=== PATIENT | male | born 1960 | race Caucasian/White ===

== ENCOUNTER → 2023-04-05 10:56 | Outpatient (BNVA) | payer MEDICARE, SELFPAY | PROVIDERS: Family Provider Emergency Medicine; PCP Emergency Medicine; Referring Provider Family Medicine; Visit Provider Nurse Practitioner Family | DX: S49.92XA Unspecified injury of left shoulder and upper arm, initial encounter (principal); W19.XXXA Unspecified fall, initial encounter; M67.912 Unspecified disorder of synovium and tendon, left shoulder | CPT/HCPCS: 73030; 99203 ==

== ENCOUNTER 2023-05-17 07:48 | Emergency (ER) | payer MEDICARE, MEDICAID, SELFPAY ==
[2023-05-17] VITALS (48 sets, daily range): BP systolic 130–153; BP diastolic 77–92; PULSE 64–98; RESP 7–33; TEMP 36.5; O2SAT 89–100; BMI 22.1
--- NOTE | 2023-05-17 08:02 | XRR_ITS ---
PROCEDURE INFORMATION: Exam: XR Left Elbow Exam date and time: 05/17/2023 8:23 AM Age: 63 years old Clinical indication: Pain; Elbow; Left TECHNIQUE: Imaging protocol: Radiologic exam of the left elbow. Views: 3 or more views. COMPARISON: CR XR shoulder LT min 2V* [id number] 05/17/2023 8:20 AM FINDINGS: Bones/joints: Alignment is normal. Joint spaces are preserved. No joint effusion. There is a subtle lucent cleft visible in the posterosuperior margin of the olecranon on the lateral radiograph. Soft tissues: There is thickening of the soft tissues posterior to the olecranon. XR/XR elbow LT min 3V* [id number] IMPRESSION: 1. Subtle lucent cleft at the posterosuperior margin of the olecranon visible on the lateral view. There is adjacent soft tissue swelling. Possible acute fracture and/or olecranon bursitis. 2. No joint effusion.
--- NOTE | 2023-05-17 08:02 | XRR_ITS ---
PROCEDURE INFORMATION: Exam: XR Left Shoulder Exam date and time: 05/17/2023 8:20 AM Age: 63 years old Clinical indication: Pain; Shoulder; Left TECHNIQUE: Imaging protocol: Radiologic exam of the left shoulder. Views: 2 or more views. COMPARISON: CR XR shoulder LT min 2V* [id number] 04/05/2023 10:59 AM FINDINGS: Bones/joints: Alignment is normal. No acute fracture. Soft tissues: Visible soft tissues are unremarkable. XR/XR shoulder LT min 2V* [id number] IMPRESSION: No acute findings.
--- NOTE | 2023-05-17 08:06 | ECG_ITS ---
[facility] Test Date: 2023-05-17 Pat Name: Dov Bartholomew Department: Room: Gender: Male Proofer Prepress: : 1960 Requested By: Shakeel Meeks Order Number: [id number] Ellie MD: Toni Benjamin M.D. Measurements Intervals [place] Rate: 78 P: 75 DC: 148 QRS: 59 QRSD: 88 T: 77 QT: 386 QTc: 442 Interpretive Statements SINUS RHYTHM No previous ECG available for comparison Electronically Signed On 05-17-2023 13:50:47 CDT by Toni Benjamin M.D. [email or web address]
--- NOTE | 2023-05-17 08:06 | XRR_ITS ---
PROCEDURE INFORMATION: Exam: XR Chest Exam date and time: 05/17/2023 8:18 AM Age: 63 years old Clinical indication: Cough and dyspnea; Additional info: Dyspnea/cough TECHNIQUE: Imaging protocol: Radiologic exam of the chest. Views: 1 view. COMPARISON: CR XR shoulder LT min 2V* [id number] 04/05/2023 10:59 AM FINDINGS: Lungs: There is no consolidation. Pleural spaces: There is no pleural effusion or pneumothorax. Heart/Mediastinum: Cardiomediastinal contours are unremarkable. There are calcified bilateral hilar and upper mediastinal lymph nodes. Bones/joints: Bones are unremarkable. XR/XR chest 1V portable [id number] IMPRESSION: No acute findings.
--- NOTE | 2023-05-17 08:12 | W.ED.AMS ---
HPI - Altered Mental Status General: Chief Complaint: Altered Mental Status Stated Complaint: hypotensive Time Seen by Provider: 05/17/23 07:50 Course Vital Signs: Vital signs: Vital Signs Temperature 97.7 F 05/17/23 07:55 Pulse Rate 73 05/17/23 07:55 Respiratory Rate 14 05/17/23 07:55 Blood Pressure 136/79 05/17/23 07:55 Pulse Oximetry 100 05/17/23 07:55 Oxygen Delivery Me thod Room Air 05/17/23 07:55 Discharge Plan Discharge Condition: Stable Prescriptions: No Action No Known Home Medications Referrals: Mars Alfred PA [Primary Care Provider] - Patient Instructions: Altered Mental Status (ED), Alcohol Intoxication (ED), Benzodiazepine Use Disorder (ED), Concussion (ED), Dementia (ED), Subarachnoid Hemorrhage (GEN), Hyponatremia (ED), Non-diabetic Hypoglycemia (ED), Hypoglycemia in a Person with Diabetes (ED) Coding Level of Care Code ED Certified Nursing Attendant for Quentin Rodriguez
--- NOTE | 2023-05-17 08:15 | W.ED.GENADLT ---
HPI - General Adult General: Chief complaint: Altered Mental Status Stated complaint: hypotensive Time Seen by Provider: 05/17/23 07:50 Source: patient Mode of arrival: ambulatory History of Present Illness: 63-year-old male brought in by EMS. The police had served a warrant for arrest and he began complaining of pain and gotten various complaints since he arrived here. Initially was hypotension and hypoglycemia but his blood pressure and his blood sugar were normal. He is complaining now of shoulder pain and arms being numb bilaterally he said a couple weeks ago he fell on his porch. There are notations from last month approximately 5 weeks ago when he was seen in the Ortho clinic for shoulder injury. That office note cited a fall he had a month prior in mid January. At that time they recommended conservative treatment with anti-inflammatories and therapy. X-rays were unremarkable at that time. Patient is otherwise difficult to get any history from pain repeatedly complains about various complaints from his neck to his shoulder to being numb throughout his entire body and then his arms. Associated symptoms: Deny chest pain, diaphoresis, dyspnea, nausea, rash or vomiting Review of Systems Const: Denies: fever(s), chills or diaphoresis Card: Denies: chest pain Resp: Denies: dyspnea GI: Denies: abdominal pain, nausea or vomiting : Denies: flank pain, dysuria, urinary frequency or urinary urgency Musc: Reports: joint pain (Left shoulder) Skin/Breast: Denies: rash or pruritus Physical Exam Const: GENERAL APPEARANCE: cooperative and comfortable HENMT: COMMON NORMALS: normocephalic, atraumatic and hearing grossly normal bilaterally HEAD & SCALP: normocephalic and atraumatic Resp: COMMON NORMALS: normal respiratory effort, No retractions, No use of accessory muscles and clear to auscultation bilaterally AUSCULTATION: clear to auscultation bilaterally Cardio: COMMON NORMALS: regular rate, regular rhythm and No murmurs present (Cardio) RATE: regular rate RHYTHM: regular rhythm GI: COMMON NORMALS: Soft to palpation and No hepatosplenomegaly present AUSCULTATION: Yes normoactive bowel sounds PALPATION: Yes Soft to palpation, No Tenderness to palpation present (GI), No Guarding due to palpation present (GI) and Yes No hepatosplenomegaly present Extremity: COMMON NORMALS: normal to inspection, capillary refill normal, no clubbing, cyanosis or edema, no calf tenderness and no pedal edema Skin: COMMON NORMALS: no rashes or lesions noted GENERAL SKIN EXAM: no rashes or lesions noted Course Vital Signs: Vital signs: Vital Signs Temperature 97.7 F 05/17/23 07:55 Pulse Rate 85 05/17/23 11:45 Respiratory Rate 18 05/17/23 11:45 Blood Pressure 132/77 05/17/23 11:45 Pulse Oximetry 98 05/17/23 11:45 Oxygen Delivery Me thod Room Air 05/17/23 11:30 MDM - General Adult Medical Decision Making Cardiac enzymes and EKG unremarkable x-rays left shoulder unremarkable he has previously been seen this been a pre-existing problem for a couple of months already him. All of his pain is with range of motion. Urine drug screen positive for amphetamines which I think is the cause of most of his symptoms at this point he does appear to be acutely under the influence. Discharge patient home with anti-inflammatories for shoulder and follow-up with his primary care and Ortho as needed Medical Records I reviewed the patient's medical records. Lab Data I reviewed the patient's lab results. 05/17/23 08:39 05/17/23 08:39 Radiology Impressions Elbow X-Ray 05/17/23 08:02 IMPRESSION: 1. Subtle lucent cleft at the posterosuperior margin of the olecranon visible on the lateral view. There is adjacent soft tissue swelling. Possible acute fracture and/or olecranon bursitis. 2. No joint effusion. Shoulder X-Ray 05/17/23 08:02 IMPRESSION: No acute findings. Chest X-Ray 05/17/23 08:06 IMPRESSION: No acute findings. Laboratory Results WBC 7.87 10^3/uL (3.29-11.43) 05/17/23 08:39 RBC 4.53 10^6/uL (3.85-5.65) 05/17/23 08:39 Hgb 13.30 g/dL (11.27-16.99) 05/17/23 08:39 Hct 41.0 % (37-53) 05/17/23 08:39 MCV 90.5 fl (82-101) 05/17/23 08:39 MCH 29.4 pg (27-33) 05/17/23 08:39 MCHC 32.4 g/dL (30-55) 05/17/23 08:39 RDW 12.1 % (12.1-15.1) 05/17/23 08:39 Plt Count 370 10^3/cmm (157-399) 05/17/23 08:39 MPV 8.6 fL (7.4-10.4) 05/17/23 08:39 Neut % (Auto) 67.1 % 05/17/23 08:39 Lymph % (Auto) 23.6 % 05/17/23 08:39 [place] % (Auto) 7.1 % 05/17/23 08:39 Eos % (Auto) 1.4 % 05/17/23 08:39 Baso % (Auto) 0.4 % 05/17/23 08:39 Neut # (Auto) 5.28 10^3/uL (1.8-7.7) 05/17/23 08:39 Lymph # (Auto) 1.9 10^3/uL (0.8-4.8) 05/17/23 08:39 [place] # (Auto) 0.6 10^3/uL (0.2-0.9) 05/17/23 08:39 Eos # (Auto) 0.1 10^3/uL (0.0-0.8) 05/17/23 08:39 Baso # (Auto) 0.0 10^3/uL (0.0-0.1) 05/17/23 08:39 Nucleated RBC % (auto) 0 % 05/17/23 08:39 Nucleated RBCs # 0.0 /100WBC 05/17/23 08:39 Specimen Type Arterial 05/17/23 09:00 Sample Site Radial, right 05/17/23 09:00 ABG pH 7.43 (7.35-7.45) 05/17/23 09:00 ABG pCO2 40.4 mmHg (35-45) 05/17/23 09:00 ABG pO2 87.6 mmHg (80.0-100.0) 05/17/23 09:00 ABG HCO3 26.6 mmol/L (22-26) H 05/17/23 09:00 ABG O2 Saturation 97.5 05/17/23 09:00 ABG Base Excess 2.0 mmol/L (-2.0-2.0) 05/17/23 09:00 Abe Test Pos 05/17/23 09:00 A-a O2 Gradient 1.6 mmHg (5-10) L 05/17/23 09:00 Hematocrit 41.2 % (42-52) L 05/17/23 09:00 Hgb O2 Saturation 95.7 % (95-100) 05/17/23 09:00 Carboxyhemoglobin 1.5 %THgb (0.4-20.1) 05/17/23 09:00 Methemoglobin 0.4 % (0.4-1.5) 05/17/23 09:00 Total Hemoglobin 13.5 g/dL (14-18) L 05/17/23 09:00 Sodium 138.0 mmol/L (131-143) 05/17/23 09:00 Potassium 3.7 mmol/L (3.5-5.0) 05/17/23 09:00 Glucose 104.0 mg/dL (70-115) 05/17/23 09:00 Ionized Calcium 1.2 mmol/L (1.1-1.4) 05/17/23 09:00 O2 Delivery Device Room air 05/17/23 09:00 FiO2 21.0 % 05/17/23 09:00 Sheriffs Detective ID glc 05/17/23 09:00 Sodium 141 mmol/L (136-145) 05/17/23 08:39 Potassium 4.0 mmol/L (3.5-5.1) 05/17/23 08:39 Chloride 104 mmol/L (98-107) 05/17/23 08:39 Carbon Dioxide 27 mmol/L (22-29) 05/17/23 08:39 Anion Gap 14.0 (5-19) 05/17/23 08:39 BUN 13 mg/dL (8-23) 05/17/23 08:39 Creatinine 0.8 mg/dL (0.7-1.2) 05/17/23 08:39 GFR Calculation 98.3 mL/min (90-130) 05/17/23 08:39 Glucose 93 mg/dL (65-115) 05/17/23 08:39 Calculated Osmolality 292 mOsm/kg (285-295) 05/17/23 08:39 Calcium 9.0 mg/dL (8.5-10.5) 05/17/23 08:39 Total Bilirubin 0.3 mg/dL (0.15-1.2) 05/17/23 08:39 AST 12 U/L (0-40) 05/17/23 08:39 ALT 9 U/L (0-41) 05/17/23 08:39 Alkaline Phosphatase 97 U/L (40-130) 05/17/23 08:39 Troponin T Baseline 8 ng/L (0-15) 05/17/23 08:39 Troponin T 120 Minute 6.64 ng/L (0-15) 05/17/23 10:44 Delta Troponin T -1.36 ABS# (0-10) L 05/17/23 10:44 Total Protein 6.8 g/dL (6.6-8.7) 05/17/23 08:39 Albumin 4.1 g/dL (3.5-5.2) 05/17/23 08:39 Globulin 2.7 g/dL (1.3-4.6) 05/17/23 08:39 Urine Color Yellow (Yellow) 05/17/23 11:50 Urine Appearance Cloudy (CLEAR) A 05/17/23 11:50 Urine pH 7 (5-7) 05/17/23 11:50 Ur Specific [place] 1.010 (1.005-1.030) 05/17/23 11:50 Urine Protein Neg (Negative) 05/17/23 11:50 Urine Glucose (UA) Norm (Normal) 05/17/23 11:50 Urine Ketones Negative (Negative) 05/17/23 11:50 Urine Blood Neg (Negative) 05/17/23 11:50 Urine Nitrate Negative (Negative) 05/17/23 11:50 Urine Bilirubin Neg (Negative) 05/17/23 11:50 Urine Urobilinogen Norm mg/dL (Negative) 05/17/23 11:50 Ur Leukocyte Esterase Negative (Negative) 05/17/23 11:50 Urine RBC 0-4 /hpf (0-2) H 05/17/23 11:50 Urine WBC 0-4 /hpf (0-5) H 05/17/23 11:50 Ur Squamous Epith Cells 0-4 /hpf (0-5) H 05/17/23 11:50 Amorphous Sediment 3+ /hpf 05/17/23 11:50 Urine Bacteria None /hpf (NONE) 05/17/23 11:50 Urine Opiates Screen Negative ng/mL (Negative) 05/17/23 11:50 Ur Barbiturates Screen Negative ng/mL (Negative) 05/17/23 11:50 Ur Phencyclidine Scrn Negative ng/mL (Negative) 05/17/23 11:50 Ur Amphetamines Screen Positive ng/mL (Negative) H 05/17/23 11:50 U Benzodiazepines Scrn Negative ng/mL (Negative) 05/17/23 11:50 Urine Cocaine Screen Negative ng/mL (Negative) 05/17/23 11:50 U Marijuana (THC) Screen Positive ng/mL (Negative) H 05/17/23 11:50 Discharge Plan Discharge Patient Disposition: Home Clinical Impression: Methamphetamine use, Tendinopathy of left shoulder Condition: Stable Prescriptions: New diclofenac sodium 75 mg tablet,delayed release (DR/EC) 75 mg PO Q12H PRN (Reason: pain) Qty: 20 0RF No Action methylprednisolone 4 mg tablets,dose pack See Rx Instructions .ROUTE .COMPLEX Rx Instructions: DIRECTED ON PACKAGE cephalexin 750 mg capsule 750 mg PO BID Discharge Orders: Discharge ED (Routine); Ordered 05/17/23 Ordered By: Shakeel Quigley Referrals: Masr Alfred PA [Primary Care Provider] - Patient Instructions: Opioid Safety, Pain Management Activity Restrictions/Additional Instructions: Abstain from methamphetamine use Coding Level of Care Code ED Director Of Restaurants for Quentin Rodriguez
[2023-05-17] MEDS: ketorolac 30 mg/mL INJ IVP (08:39)
[2023-05-17 08:46] LABS: Basophils % 0.4 %; Eosinophils # 0.1 10^3/uL (0.0-0.8); Eosinophils % 1.4 %; Lymphocytes # 1.9 10^3/uL (0.8-4.8); Lymphocytes % 23.6 %; Mean Corpuscular HGB Conc 32.4 g/dL (30-55); Mean Corpuscular Hemoglobin 29.4 pg (27-33); Mean Corpuscular Volume 90.5 fl (82-101); Mean Platelet Volume 8.6 fL (7.4-10.4); Monocytes # 0.6 10^3/uL (0.2-0.9); Monocytes % 7.1 %; Neutrophils # 5.28 10^3/uL (1.8-7.7); Neutrophils % 67.1 %; Nucleated Red Blood Cells % 0 %; Platelet Count 370 10^3/cmm (157-399); Red Blood Count 4.53 10^6/uL (3.85-5.65); Red Cell Distribution Width 12.1 % (12.1-15.1); White Blood Count 7.87 10^3/uL (3.29-11.43)
[2023-05-17 09:17] LABS: ABG PCO2 40.4 mmHg (35-45); ABG PH Result 7.43 (7.35-7.45); Alveolar-Arterial Oxygen Gradi 1.6 mmHg (5-10); Arterial Blood Gas Hematocrit 41.2 % (42-52); Blood Gas Allen Test Pos; Blood Gas Operator Identificat glc; Blood Gas Sample Site Radial, right; Blood Gas Sample Type Arterial; Carboxyhemoglobin 1.5 %THgb (0.4-20.1); HCO3 ABG 26.6 mmol/L (22-26); HGB O2 Sat 95.7 % (95-100); Ionized Calcium Level - ABG 1.2 mmol/L (1.1-1.4); Methemoglobin 0.4 % (0.4-1.5); Oxygen Device ROOM AIR; Oxygen Saturation ABG 97.5; PO2 ABG 87.6 mmHg (80.0-100.0); Potassium Level - ABG 3.7 mmol/L (3.5-5.0); Total Hemoglobin 13.5 g/dL (14-18)
[2023-05-17 09:20] LABS: Alanine Aminotransferase 9 U/L (0-41); Albumin Level 4.1 g/dL (3.5-5.2); Alkaline Phosphatase 97 U/L (40-130); Aspartate Amino Transferase 12 U/L (0-40); Blood Urea Nitrogen 13 mg/dL (8-23); Carbon Dioxide 27 mmol/L (22-29); Chloride 104 mmol/L (98-107); Globulin 2.7 g/dL (1.3-4.6); Glomerular Filtration Rate 98.3 mL/min (90-130); Glucose 93 mg/dL (65-115); Osmolality Calculated 292 mOsm/kg (285-295); Sodium 141 mmol/L (136-145); Total Bilirubin 0.3 mg/dL (0.15-1.2); Total Protein 6.8 g/dL (6.6-8.7); Troponin(5th) Baseline 8 ng/L (0-15)
[2023-05-17 11:34] LABS: Troponin 5 2HR 6.64 ng/L (0-15)
[2023-05-17 11:35] LABS: Troponin 5 2HR Delta -1.36 ABS# (0-10)
[2023-05-17 12:07] LABS: Amphetamines Screen Urine Positive (Negative); Barbiturates Screen Urine Negative (Negative); Benzodiazepines Screen Urine Negative (Negative); Cocaine Screen Urine Negative (Negative); Opiate Screen Urine Negative (Negative); PCP Screen Urine Negative (Negative); THC Screen Urine Positive (Negative)
[2023-05-17 12:08] LABS: Blood Urine Neg (Negative); Glucose Urine UA Norm (Normal); Protein Urine Neg (Negative); Urine Appearance Cloudy (CLEAR); Urine Color Yellow (Yellow); pH Urine 7 (5-7)
[2023-05-17 12:09] LABS: Add Urine Culture? No; Add Urine Microscopic? YES; Amorphous Sediment Urine 3+ /hpf; Bilirubin Urine Neg (Negative); Ketones Urine Negative (Negative); Leukocyte Esterase Urine Negative (Negative); Nitrate Urine Negative (Negative); RBC Urine 0-4 /hpf (0-2); Squamous Epithelial Cell Urine 0-4 /hpf (0-5); Urobilinogen Urine Norm (Negative); WBC Urine 0-4 /hpf (0-5)
[2023-05-20 15:28] LABS: Glucose Point of Care 96 mg/dL (70-110)
== END 2023-05-17 12:15 | disposition home or self-care (01) ==
PROVIDERS: Emergency Provider Family Medicine; Family Provider Emergency Medicine; PCP Emergency Medicine
DX: M77.8 Other enthesopathies, not elsewhere classified (principal); F15.90 Other stimulant use, unspecified, uncomplicated
CPT/HCPCS: 36415; 36416; 36600; 71045; 73030; 73080; 80051; 80053; 80306; 81001; 82330; 82805; 82962; 84484; 85025; 93005; 96374; 99285; J1885

== ENCOUNTER → 2024-02-12 09:34 | Outpatient (BNVA) | payer MEDICARE, MEDICAID, SELFPAY | PROVIDERS: Family Provider Emergency Medicine; PCP Emergency Medicine; Visit Provider Specialist | DX: R55 Syncope and collapse (principal); G43.109 Migraine with aura, not intractable, without status migrainosus | CPT/HCPCS: 99204 ==

== ENCOUNTER 2024-02-27 13:16 | Outpatient (CLI) | payer MEDICARE, MEDICAID, SELFPAY ==
--- NOTE | 2024-02-27 13:45 | USCV_ITS ---
Dov Bartholomew Age: 64 Gender: M : 1960 Exam Date: 02/27/2024 14:04 Ordering Phys: Tawny Daley MD Technologist: Ex[place] [facility] [place]: tia Risk Factors: Previous Vascular Surgery: Right Brachial BP: / Left Brachial BP: / Right Left Velocity (cm/s) Spectral Plaque Velocity (cm/s) Spectral Plaque Syst/Diast Broadening Syst/Diast Broadening 86.20/ 21.90 Prox CCA 92.10 / 23.30 101.50/25.20 Mid CCA 61.90 / 14.90 87.70/ 26.90 Distal CCA 60.20 / 16.60 60.60/ 11.30 Prox ICA 63.90 / 21.20 64.10/ 17.50 Mid ICA 90.80 / 30.70 82.70/ 31.70 Distal ICA 68.00 / 20.90 84.10 ECA 140.80 0.90 ICA/CCA 1.50 Antegrade Vertebral Antegrade 31.40/ 10.10 cm/s 37.20/ 11.20 cm/s Tri Subclavian Tri 149.8 120.0 0 0 FINDINGS Comparison: none available. No significant elevation of systolic or diastolic velocities. Waveforms are normal. Mild bilateral scattered calcified plaque and intimal thickening throughout the common carotid arteries and extending through the bifurcation. CONCLUSIONS Bilateral ICA stenosis less than 50%. Mild bilateral carotid atherosclerosis. Dr. Yolanda Cordero DO (Electronically Signed) Final Date: 27 February 2024 15:55 S
--- NOTE | 2024-02-27 14:15 | USCV_ITS ---
[place] Dov Age: 64 Gender: M : 1960 Exam Date: 02/27/2024 13:47 Ordering Phys: Tawny Daley MD Technologist: Exam [place] [facility] [place]: tia BP: 150 / 80 HR: 73 Rhythm: Sinus Technical Quality: Adequate MEASUREMENTS (Male / Female) Normal Values 2D ECHO LV Diastolic Diameter PLAX 3.7 cm 4.2 - 5.9 / 3.9 - 5.3 cm IVS Diastolic Thickness 0.8 cm 0.6 - 1.0 / 0.6 - 0.9 cm IVS Systolic Thickness 1.4 cm LVPW Diastolic Thickness 1.1 cm 0.6 - 1.0 / 0.6 - 0.9 cm LVPW Systolic Thickness 1.7 cm LVOT Diameter 2.0 cm LV Ejection Fraction 2D Teich 55.6 % LV Ejection Fraction MOD 2C 83.1 % LV Ejection Fraction 2C AL 82.3 % LA Diameter 2.5 cm RA Systolic Volume 4C AL 32.8 ml RA Systolic Volume 4C MOD 29.6 ml LA Sys Volume AL 36.1 cm cubed LA Sys Volume Index AL 20.2 cm cubed/m squared Aorta at Sinotubular Diameter 2.8 cm IVC Diameter 1.8 cm M-MODE LA Ao Ratio MM 0.9 AV Cusp Separation MM 2.5 cm DOPPLER AV Peak Velocity 134.0 cm/s LVOT Peak Velocity 113.0 cm/s AV Area Cont Eq vti 3.4 cm squared AV Area Cont Eq pk 2.6 cm squared MV Peak Velocity 100.0 cm/s MV Area PHT 4.2 cm squared Mitral E to A Ratio 1.3 TV Peak Velocity 160.7 cm/s TR Peak Velocity 208.0 cm/s TR Peak Gradient 17.3 mmHg TV Peak E Velocity 113.0 cm/s Right Atrial Pressure 3.0 mmHg Pulmonary Artery Systolic Pressu 20.3 mmHg PV Peak Velocity 95.0 cm/s FINDINGS Left Ventricle Left ventricle is normal size. LV systolic function is normal with EF 55 to 60%. No regional wall motion abnormalities are seen. Right Ventricle Normal in size and function Right Atrium Normal in size Left Atrium Normal in size Mitral Valve Structurally normal mitral valve. Trace mitral regurgitation. Aortic Valve Structurally normal aortic valve. No significant stenosis or regurgitation Tricuspid Valve Insufficient TR jet to calculate RVSP. Pulmonic Valve Not well-visualized Pericardium Normal Aorta Normal in size IVC Appears to be normal CONCLUSIONS LV systolic function is normal with EF of 55-60% Trace mitral regurgitation No comparison studies are available. Toni Benjamin MD (Electronically Signed) Final Date: 08 March 2024 22:28 S
== END 2024-02-27 13:17 | disposition home or self-care (01) ==
LOC: RAD 13:16
PROVIDERS: Family Provider Emergency Medicine; PCP Emergency Medicine; Visit Provider Specialist
DX: R55 Syncope and collapse (principal); I65.23 Occlusion and stenosis of bilateral carotid arteries
CPT/HCPCS: 93306; 93880